=== PATIENT | male | born 1975 | race Two or more races ===

== ENCOUNTER 2021-10-12 14:50 | Outpatient (CLI) | payer OTHER ==
[~2021-10-12 14:50] MED LIST: ASPI-1009 PO; ATENOLOL; CLOP75TA34 PO; LORA0.5T PO; LOVA20TA2 PO; LOVAZA; NICO-630 TD; NITR0.4T51 SL; NORCO10T PO
[2021-10-12 16:14] LABS: BASOPHILS % (AUTO) 0.5 % (0-1); EOSINOPHILS % (AUTO) 0.4 % (0-6); LYMPHOCYTES # (AUTO) 1.1 X10'3 (1.1-4.8); LYMPHOCYTES % (AUTO) 25.8 % (21-51); MEAN CORPUSCULAR HEMOGLOBIN 30.7 PG (27.0-31.0); MEAN CORPUSCULAR VOLUME 87.8 FL (78-98); MEAN PLATELET VOLUME 8.1 FL (7.4-10.4); MONOCYTES # (AUTO) 0.5 X10'3 (0-0.9); MONOCYTES % (AUTO) 11.2 % (2-12); NEUTROPHILS # (AUTO) 2.8 X10'3 (1.8-7.7); NEUTROPHILS % (AUTO) 62.1 % (42-75); PRE OP HEMATOCRIT 42.1 % (42.0-52.0); PRE OP HEMOGLOBIN 14.7 g/dL (14.0-17.9); PRE OP PLATELET COUNT 216 X10'3 (140-440); RED BLOOD COUNT 4.79 X10'6 (4.70-6.10); RED CELL DISTRIBUTION WIDTH 13.7 % (11.5-14.5)
[2021-10-12 16:23] LABS: ALBUMIN 4.1 G/DL (3.4-5.0); ALKALINE PHOSPHATASE 80 IU/L (46-116); BLOOD UREA NITROGEN 12 MG/DL (7-18); BUN/CREATININE RATIO 14.1 (5.4-32.0); CALCIUM 8.3 MG/DL (8.5-10.1); CHLORIDE 103 MMOL/L (99-107); CREATININE 0.85 MG/DL (0.60-1.10); PRE OP ALT 58 U/L (30-65); PRE OP ANION GAP 7 (8-16); PRE OP AST 30 U/L (10-37); PRE OP BILIRUB, TOTAL 0.3 MG/DL (0.0-1.0); PRE OP GLUCOSE 104 MG/DL (70-104); PRE OP POTASSIUM 3.7 MMOL/L (3.4-5.1); PRE OP SODIUM 139 MMOL/L (135-145); TOTAL CARBON DIOXIDE 29.1 MMOL/L (24-32); TOTAL PROTEIN 8.3 G/DL (6.4-8.2); eGFR > 90 ML/MIN
== END 2021-10-12 23:59 | disposition home or self-care (01) ==
LOC: PRE-OP 14:50 → EDSTATUS 10-17 08:45
PROVIDERS: ATTEND Surgery
DX: Z01.818 Encounter for other preprocedural examination (principal); K40.20 Bilateral inguinal hernia, without obstruction or gangrene, not specified as recurrent
CPT/HCPCS: 36415; 80053; 85025; 93005; U0003; U0005

== ENCOUNTER 2021-11-21 11:29 | Day surgery (SDC) | payer OTHER ==
[2021-11-16 11:27] LABS: BASOPHILS # (AUTO) 0.1 X10'3 (0-0.2); BASOPHILS % (AUTO) 1.1 % (0-1); EOSINOPHILS # (AUTO) 0.1 X10'3 (0-0.9); EOSINOPHILS % (AUTO) 1.3 % (0-6); LYMPHOCYTES # (AUTO) 1.9 X10'3 (1.1-4.8); LYMPHOCYTES % (AUTO) 34.6 % (21-51); MEAN CORPUSCULAR HEMOGLOBIN 30.3 PG (27.0-31.0); MEAN CORPUSCULAR HGB CONC 33.8 g/dL (33.0-36.5); MEAN CORPUSCULAR VOLUME 89.6 FL (78-98); MEAN PLATELET VOLUME 8.4 FL (7.4-10.4); MONOCYTES # (AUTO) 0.5 X10'3 (0-0.9); MONOCYTES % (AUTO) 9.7 % (2-12); NEUTROPHILS # (AUTO) 2.9 X10'3 (1.8-7.7); NEUTROPHILS % (AUTO) 53.3 % (42-75); PRE OP HEMATOCRIT 42.4 % (42.0-52.0); PRE OP HEMOGLOBIN 14.3 g/dL (14.0-17.9); PRE OP PLATELET COUNT 196 X10'3 (140-440); RED BLOOD COUNT 4.73 X10'6 (4.70-6.10); RED CELL DISTRIBUTION WIDTH 13.8 % (11.5-14.5)
[2021-11-16 11:46] LABS: ALBUMIN 4.2 G/DL (3.4-5.0); ALBUMIN/GLOBULIN RATIO 1.2 (1.1-1.5); ALKALINE PHOSPHATASE 85 IU/L (46-116); BLOOD UREA NITROGEN 15 MG/DL (7-18); BUN/CREATININE RATIO 16.5 (5.4-32.0); CALCIUM 9.2 MG/DL (8.5-10.1); CHLORIDE 106 MMOL/L (99-107); CREATININE 0.91 MG/DL (0.60-1.10); PRE OP ALT 58 U/L (30-65); PRE OP ANION GAP 8 (8-16); PRE OP AST 26 U/L (10-37); PRE OP BILIRUB, TOTAL 0.5 MG/DL (0.0-1.0); PRE OP GLUCOSE 109 MG/DL (70-104); PRE OP POTASSIUM 4.4 MMOL/L (3.4-5.1); PRE OP SODIUM 143 MMOL/L (135-145); TOTAL CARBON DIOXIDE 28.6 MMOL/L (24-32); TOTAL PROTEIN 7.7 G/DL (6.4-8.2); eGFR 89 ML/MIN
[~2021-11-21] VITALS: Ht 170.2 cm; Wt 104.8 kg
[2021-11-21] VITALS (11 sets, daily range): BP systolic 101–129; BP diastolic 66–88
[~2021-11-21 11:29] MED LIST changes: -ASPI-1009 PO; -ATENOLOL; +BUPIVAcaine 0.5% inj/PF 30 ML ONE; -CLOP75TA34 PO; +FEXO180T94 PO; +LIDOcaine 1% 30ml preserv. free vial ONE; -LORA0.5T PO; -LOVA20TA2 PO; -LOVAZA; -NICO-630 TD; -NITR0.4T51 SL; -NORCO10T PO; +cefazolin/dext.iso 2gm/50ml IV ONE; +famotidine 20mg tablet PO ONE; +ringers solution, lacted 1,000 ML IV SCH
[2021-11-21] MEDS ORDERED: FENTANYL CITRATE/PF 50 MCG/1 ML VIAL ONE (11:51)
[2021-11-21] MEDS ORDERED: midazolam 1 mg/ML 2ml injection ONE (11:51)
[2021-11-21] MEDS ORDERED: glycopyrrolate 0.2mg/ml inj ONE (11:52)
[2021-11-21] MEDS ORDERED: dexamethasone sod phosphate 4mg/ml inj. ONE (11:52)
[2021-11-21] MEDS ORDERED: neostigmine methylsulfate 1 MG/ML 10ml vial ONE (11:52)
[2021-11-21] MEDS ORDERED: rocuronium 10mg/ml inj IV ONE (11:52)
[2021-11-21] MEDS ORDERED: ondansetron/PF 4mg/2ml inj ONE (11:52)
[2021-11-21] MEDS ORDERED: LIDOcaine 2% (20mg/ml) 5ml vial ONE (11:52)
[2021-11-21] MEDS ORDERED: propofol inj 20 ML IV ONE (11:52)
[2021-11-21] MEDS ORDERED: fentaNYL/PF 50MCG/1 ML 2ML syringe ONE (13:42)
[2021-11-21] MEDS ORDERED: ondansetron/PF 4mg/2ml inj IV PRN (13:50)
[2021-11-21] MEDS ORDERED: morphine 4 MG/ML inj SYRINge IV PRN (13:50)
[2021-11-21] MEDS ORDERED: ringers solution, lacted 1,000 ML IV SCH (13:50)
[2021-11-21] MEDS ORDERED: proCHLORperazine 10 MG/2 ml inj IV PRN (13:50)
[2021-11-21] MEDS ORDERED: meperidine/PF 25mg/ml syringe IV PRN ×3 (13:50)
[2021-11-21] MEDS ORDERED: morphine 2 MG/ML inj. syringe IV PRN (13:50)
--- NOTE | 2021-11-21 14:05 | NUR ---
PT ARRIVED TO RECOVERY ROOM VIA LUNA, ACCOMPANIED BY DR WATERMAN-REPORT GIVEN, VSS, DENIES PAIN, ABD BANDAIDS X 3-CDI, PIV LEFT HAND 20G
[2021-11-21] MEDS ORDERED: HYDROcodone/acetaminophen 5mg/325mg tablet PO PRN (14:25)
--- NOTE | 2021-11-21 15:45 | NUR ---
PT UP AND DRESSED, ABLE TO VOID, VSS, PAIN TOLERABLE WITH NORCO, NO CHANGE IN ABD DRSG-CDI, PIV D/CD-CANULA INTACT, SCDS OFF, D/C INSTRUCTIONS GIVEN TO PT-ALL QUESTIONS ANSWERED, TAKEN VIA W/C WITH ALL BELONGINGS TO [facility] FOR TRANSPORT HOME
== END 2021-11-21 15:45 | disposition home or self-care (01) ==
LOC: PAS 11:29
PROVIDERS: ATTEND Surgery
DX: K40.90 Unilateral inguinal hernia, without obstruction or gangrene, not specified as recurrent (principal); K43.6 Other and unspecified ventral hernia with obstruction, without gangrene; E66.9 Obesity, unspecified; Z68.36 Body mass index [BMI] 36.0-36.9, adult; Z79.899 Other long term (current) drug therapy; Z20.822 Contact with and (suspected) exposure to COVID-19; Z87.891 Personal history of nicotine dependence; Z98.890 Other specified postprocedural states
CPT/HCPCS: 36415; 49561; 49650; 80053; 82948; 85025; C1781; J1100; J2250; J2405; J2704; J2710; J3010; J3490; J7030; J7120; S0020; S2900; U0003; U0005; Z7506; Z7508; Z7512; A4215; A4618

== ENCOUNTER 2024-05-08 12:44 | Outpatient (CLI) | payer MEDICAID, OTHER ==
[~2024-05-08 12:44] MED LIST changes: -BUPIVAcaine 0.5% inj/PF 30 ML ONE; -LIDOcaine 1% 30ml preserv. free vial ONE; -cefazolin/dext.iso 2gm/50ml IV ONE; -famotidine 20mg tablet PO ONE; -ringers solution, lacted 1,000 ML IV SCH
== END 2024-05-08 23:59 | disposition home or self-care (01) ==
LOC: MRI 12:44
PROVIDERS: ATTEND Physician Assistant Medical
DX: M75.102 Unspecified rotator cuff tear or rupture of left shoulder, not specified as traumatic (principal); M89.312 Hypertrophy of bone, left shoulder
CPT/HCPCS: 73221

== ENCOUNTER 2025-06-27 15:05 | Emergency (ER) | payer MEDICAID ==
[~2025-06-27] VITALS: Ht 170.2 cm; Wt 106.6 kg
[2025-06-27 15:10] VITALS: RESP 16; TEMP 98.6; O2SAT 98
--- NOTE | 2025-06-27 15:22 | ELECTROCARDIOGRAPH REPORT ---
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 Ranjeet Medellin Measurements Intervals [place] Rate: 88 P: 56 ID: [id number] QRS: 80 QRSD: 90 T: -36 QT: 347 QTc: 420 Interpretive Statements Sinus rhythm RSR' in V1 or V2, right VCD or RVH Nonspecific T abnormalities, inferior leads Electronically Signed On 06-27-2025 18:17:[address] Ranjeet Medellin Please click the below link to view image of tracing.
[2025-06-27 15:41] LABS: MEAN PLATELET VOLUME 8.8 FL (7.4-10.4); RED CELL DISTRIBUTION WIDTH 13.6 % (11.5-14.5)
--- NOTE | 2025-06-27 15:42 | RADIOLOGY REPORT ---
CHEST RADIOGRAPH Indication: CP Technique: Single frontal view of the chest was obtained COMPARISON: None FINDINGS: Lines and Tubes: None Lungs: Clear Pleura: No effusion. No pneumothorax. Cardiomediastinal contours: Unremarkable Bones: Unremarkable IMPRESSION: 1. No acute disease.
[2025-06-27 16:05] LABS: CREATININE 0.91 MG/DL (0.60-1.10); TOTAL CARBON DIOXIDE 25.0 MMOL/L (24-32); eCRCL 90 ML/MIN; eGFR 88 ML/MIN
[2025-06-27 16:11] LABS: PRO BRAIN NATRIURETIC PEPTIDE < 30 PG/ML (0-125)
--- NOTE | 2025-06-27 17:56 | RADIOLOGY REPORT ---
CT CT HEAD INDICATION: headache, lightheadedness COMPARISON: None TECHNIQUE: CT of the head without intravenous contrast. RADIATION DOSE: CTDIvol: 67 mGy, DLP: 1239 mGy*cm FINDINGS: There is no evidence of acute intracranial hemorrhage, extra-axial collection, mass effect, midline shift, herniation or hydrocephalus. The ventricles, sulci and cisterns are age appropriate. The pierre-white differentiation is intact. The visualized paranasal sinuses and mastoid air cells are clear. The surrounding soft tissues and osseous structures are unremarkable. IMPRESSION: 1. No evidence of acute intracranial hemorrhage, mass effect or hydrocephalus.
--- NOTE | 2025-06-27 18:00 | Physician Documentation ---
History of Present Illness ~ Chief Complaint: Dizziness Stated Complaint: GEN ILLNESS Time Seen by MD: 16:35 OK to notify your PCP?: Yes Primary Medical Doctor: NONE Source: patient Mode of Arrival: POV Exam Limitations: no limitations HPI 50-year-old male with chief complaint dizziness that has been going on for at least a week. Dizziness described as lightheadedness not spinning sensation is worse when he stands up and walks around. He also reports a headache which he states is over his temples he initially thought it was due to wearing a hat as he states he does not normally wear hats but states the pain is there whether he has a his head on or not. Pain is described as mild. Patient also reports my eyes feel really heavy and has nothing to do with not getting enough sleep because I have been getting plenty asleep. He denies fever, chills, body aches, cough or shortness of breath. No chest pain, palpitations. No syncopal episodes. He does not take any medications. Medication Reconciliation Allergies: Coded Allergies: No Known Allergies (Unverified , 06/27/25) Scheduled PRN Fexofenadine* (Aleena*), 1 TAB PO DAILY PRN for allergies, (Reported) Past Medical History Past Medical History: Coronary Artery Disease, High Cholesterol, Myocardial Infarction Past Surgical History: angioplasty Other Past Surgical History: stent to proximal LAD [id number] Alcohol Use: Occasionally Drug Use: none Lives with: Alone Lives In: Home Occupation: employed Review of Systems All Other Systems at this time: Reviewed and Negative Physical Exam Vital Signs: Temperature: 98.6, Source: Temporal, Heart Rate: 93, Respiratory Rate: 16, BP: 115/88, Pulse Oximetry: 98, Weight: 106.600 Oxygen Flow Rate: 0 Physical Exam GENERAL: Alert, no acute distress. HEENT: NCAT, EOMI, no nystagmus, PERRLA, normal oropharynx, moist oral mucosa. NECK: Supple, trachea midline. CARDIAC: Regular rate and rhythm, no murmurs, rubs, or gallops. Equal distal pulses. No lower extremity edema, cap refill less than 2 seconds. RESPIRATORY: Equal breath sounds, clear to auscultation bilaterally, no respiratory distress. GASTROINTESTINAL: Non distended, soft, nontender, No guarding or rebound. MUSCULOSKELETAL: Normal range of motion, nontender, no swelling. Normal gait. NEUROLOGICAL: Awake, alert, and oriented x 3. Cranial nerves 2-12 intact SKIN: Warm/dry, no pallor, no rash. PSYCH: Alert and appropriate. Affect congruent with mood. Speech is clear. Good eye contact. Progress Results/Orders Results/Orders Orders - KATHERYN RICO Ct Head (06/27/25 17:21) Completed Orders - KATHERYN RICO Ct Head (06/27/25 17:21) Vital Signs 06/27/25 06/27/25 06/27/25 06/27/25 15:10 17:00 17:02 17:04 Temp 98.6 Pulse 88 78 85 93 Resp 16 B/P (MAP) 145/95 143/84 123/80 115/88 Pulse Ox 98 O2 Flow Rate 0 06/27/25 18:24 Pulse 79 B/P (MAP) 131/82 Laboratory Tests Test 06/27/25 15:21 06/27/25 17:30 White Blood Count 5.3 Red Blood Count 5.58 Hemoglobin 16.6 Hematocrit 48.7 Mean Corpuscular Volume 87.3 Mean Corpuscular Hemoglobin 29.8 Mean Corpuscular Hemoglobin Concent 34.1 Red Cell Distribution Width 13.6 Platelet Count 235 Mean Platelet Volume 8.8 Neutrophils (%) (Auto) 57.4 Lymphocytes (%) (Auto) 34.6 Monocytes (%) (Auto) 6.3 Eosinophils (%) (Auto) 0.6 Basophils (%) (Auto) 1.1 H Neutrophils # (Auto) 3.1 Lymphocytes # (Auto) 1.8 Monocytes # (Auto) 0.3 Eosinophils # (Auto) 0.0 Basophils # (Auto) 0.1 CBC Comment Sodium Level 137 Potassium Level 4.2 Chloride Level 105 Carbon Dioxide Level 25.0 Anion Gap 7 L Blood Urea Nitrogen 12 Creatinine 0.91 Estimated GFR/1.73 m2 88 BUN/Creatinine Ratio 13.2 Glucose Level 196 H Calcium Level 9.7 Troponin I High Sensitivity 5 4 Pro-B-Type Natriuretic Peptide < 30 Albumin 4.1 Chemistry Comments Troponin I High Sens Percent Delta 20 Troponin I Hi Sens Absolute Change -1 Medical Decision Making Differential Dx:Considerations: Include: anemia, CVA, dehydration, dysrhythmia, electrolyte imbalance, encephalopathy, Guillain-[place], hypoglycemia, hypotension, hypovolemia, labyrinthitis, Meniere's disease, myasathenia gravis, myocardial infarction, pulmonary embolus, renal failure, respiratory failure, TIA, VBI, vertigo central, vertigo peripheral, vestibular neuronitis Departure Time of Disposition: 18:00 Disposition: 01 HOME / SELF CARE / HOMELESS Impression: Primary Impression: Dizziness Additional Impressions: Headache Qualified Codes: R51.9 - Headache, unspecified Elevated glucose level Condition: Stable Discharge Instructions: Dizziness Additional Instructions: labs normal other than your glucose which was just under 200 if you just ate something high in sugar this could make sense, but you should have your glucose rechecked with an a1c level to make sure you do not have diabetes your kidney function, white blood cells, and red blood cells where normal you did not have orthostatic hypotension your head CT was normal-results below your EKG and troponins where normal RETURN TO ER IF SYMPTOMS WORSEN OTHERWISE YOU NEED TO GET ESTABLISHED WITH A PCP AND FOLLOW UP ON YOUR GLUCOSE LEVEL AND SYMPTOMS CT CT HEAD INDICATION: headache, lightheadedness COMPARISON: None TECHNIQUE: CT of the head without intravenous contrast. RADIATION DOSE: CTDIvol: 67 mGy, DLP: 1239 mGy*cm FINDINGS: There is no evidence of acute intracranial hemorrhage, extra-axial collection, mass effect, midline shift, herniation or hydrocephalus. The ventricles, sulci and cisterns are age appropriate. The pierre-white differentiation is intact. The visualized paranasal sinuses and mastoid air cells are clear. The surrounding soft tissues and osseous structures are unremarkable. IMPRESSION: 1. No evidence of acute intracranial hemorrhage, mass effect or hydrocephalus. Referrals: NO PRIMARY CARE PROVIDER (PCP) Education Educated: Patient Educated regarding: diagnosis, treatment, need for follow up Signature Scribe Signature: x Attestation: KATHERYN Baker Jun 27, 2025 18:00
[2025-06-27 18:24] VITALS: BP 131/82; PULSE 79
== END 2025-06-27 18:28 | disposition home or self-care (01) ==
LOC: ER 15:05
DX: R42 Dizziness and giddiness (principal); R51.9 Headache, unspecified; R73.9 Hyperglycemia, unspecified; R06.02 Shortness of breath
CPT/HCPCS: 36415; 70450; 71045; 80048; 83880; 84484; 85025; 93005; 99285